=== PATIENT | male | born 1980 | race Caucasian/White ===

== ENCOUNTER 2019-01-13 23:10 | Emergency (ER) | payer BC ==
[2019-01-13] MEDS ORDERED: Sodium Chloride 0.9% 10 ML Syringe FLUSH PRN (23:25)
[2019-01-13] MEDS: Sodium Chloride 0.9% 1,000 ML IV ONE (23:33)
[2019-01-14 00:25] LABS: CHLORIDE,CL 99 mmol/L (98-107); SODIUM,NA 138 mmol/L (136-145)
[2019-01-14] MEDS: cloNIDine 0.1 MG Tab PO ONE (00:38)
--- NOTE | 2019-01-14 01:47 | EDM.PDOC ---
ED HPI GENERAL MEDICAL PROBLEM - General Chief Complaint: General Stated Complaint: HYPERTENSION Time Seen by Provider: 01/13/19 23:12 Source of Information: Reports: Patient History Limitations: Reports: No Limitations - History of Present Illness INITIAL COMMENTS - FREE TEXT/NARRATIVE: pt. presents to ER with complaints with lightheadedness and near syncope after exiting the shower. He states that he has hypertension that he has not been taking his clonidine for (it is ). He states that after he had this episode, he took a single dose of 0.1mg clonidine. Denies any chest pain. No shortness of breath. He does complain of some continued lightheadedness and fatigue. No nausea or vomiting. He states that he is an alcoholic. He went through treatment (60day [facility] through the [facility]) in 2017 and relapsed about 9 months ago. He drinks beer almost nightly. He denies having any symptoms of DTs when he doesn't drink. Denies any black or tarry stools. Onset: Today Location: Reports: Generalized Associated Symptoms: Reports: Weakness Back Pain Score (Numeric/FACES): 7 - Related Data Allergies Allergy/AdvReac Type Severity Reaction Status Date / Time No Known Allergies Allergy Verified 01/13/19 23:12 Home Meds: Home Meds cloNIDine [cloNIDine HCl] 0.1 mg PO BID 01/13/19 [History] Past Medical History Cardiovascular History: Reports: Hypertension - Past Surgical History HEENT Surgical History: Reports: Oral Surgery Musculoskeletal Surgical History: Reports: Other (See Below) Other Musculoskeletal Surgeries/Procedures:: back surgery Social & Family History - Tobacco Use Smoking Status *Q: Current Every Day Smoker Years of Tobacco use: 20 Packs/Tins Daily: 1 - Alcohol Use Days Per Week of Alcohol Use: 7 Number of Drinks Per Day: 6 Total Drinks Per Week: 42 - Recreational Drug Use Recreational Drug Use: Yes Recreational Drug Type: Reports: Marijuana/Hashish ED ROS GENERAL - Review of Systems Review Of Systems: See Below Constitutional: Reports: Weakness, Fatigue HEENT: Reports: No Symptoms Respiratory: Reports: No Symptoms Cardiovascular: Reports: Lightheadedness, Palpitations Endocrine: Reports: No Symptoms GI/Abdominal: Reports: No Symptoms : Reports: No Symptoms Musculoskeletal: Reports: No Symptoms Skin: Reports: No Symptoms Neurological: Reports: No Symptoms Psychiatric: Reports: No Symptoms Hematologic/Lymphatic: Reports: No Symptoms Immunologic: Reports: No Symptoms ED EXAM, GENERAL - Physical Exam Exam: See Below Exam Limited By: No Limitations General Appearance: Alert, WD/WN, No Apparent Distress Eye Exam: Bilateral Eye: EOMI, Normal Fundi, Normal Inspection, PERRL Nose: Normal Inspection, Normal Mucosa, No Blood Throat/Mouth: Normal Inspection, Normal Lips, Normal Teeth, Normal Gums, Normal Oropharynx, Normal Voice, No Airway Compromise Head: Atraumatic, Normocephalic Neck: Normal Inspection, Supple, Non-Tender, Full Range of Motion Respiratory/Chest: No Respiratory Distress, Lungs Clear, Normal Breath Sounds, No Accessory Muscle Use, Chest Non-Tender Cardiovascular: Normal Peripheral Pulses, Regular Rate, Rhythm, No Edema, No Gallop, No JVD, No Murmur, No Rub Peripheral Pulses: 4+: Radial (R) GI/Abdominal: Normal Bowel Sounds, Soft, Non-Tender, No Organomegaly, No Distention, No Abnormal Bruit, No Mass (Male) Exam: Deferred Rectal (Males) Exam: Deferred Back Exam: Normal Inspection, Full Range of Motion, NT Extremities: Normal Inspection, Normal Range of Motion, Non-Tender, Normal Capillary Refill, No Pedal Edema Neurological: Alert, Oriented, CN II-XII Intact, Normal Cognition, Normal Gait, Normal Reflexes, No Motor/Sensory Deficits Psychiatric: Normal Affect, Normal Mood Skin Exam: Warm, Dry, Intact, Normal Color, No Rash Lymphatic: No Adenopathy EKG INTERPRETATION Rhythm: NSR [place]: Normal P-Wave: Present QRS: Normal ST-T: Normal QT: Normal Course - Vital Signs Last Recorded V/S: Last Vital Signs Temp 36.8 C 01/13/19 23:12 Pulse 80 01/14/19 01:08 Resp 14 01/14/19 01:08 BP 158/96 H 01/14/19 01:08 Pulse Ox 98 01/14/19 00:32 - Orders/Labs/Meds Orders: Active Orders 24 hr Category Date Time Status EKG Documentation Completion [RC] STAT Care 01/13/19 23:24 Active Chest 1V Frontal [CR] Stat Exams 01/13/19 23:24 Taken Peripheral IV Insertion Adult [OM.PC] Routine Oth 01/13/19 23:25 Ordered Labs: Laboratory Tests 01/13/19 01/13/19 01/13/19 Range/Units 23:55 23:55 23:55 WBC 8.5 (4.0-10.0) x10^3/uL RBC 5.26 (4.5-6.0) x10^6/uL Hgb 16.8 (14.0-18.0) g/dL Hct 48.3 (40.0-52.0) % MCV 91.8 (78.0-93.0) fL MCH 31.9 (26.0-32.0) pg MCHC 34.8 (32.0-36.0) g/dL RDW Coeff of Olimpia 12.0 (10.0-15.0) % Plt Count 218 (130-400) x10^3/uL Neut % (Auto) 71.5 (50.0-80.0) % Lymph % (Auto) 20.9 L (25.0-50.0) % [place] % (Auto) 7.0 (2.0-11.0) % Eos % (Auto) 0.0 (0.0-4.0) % Baso % (Auto) 0.6 (0.2-1.2) % PT 10.4 (9.6-11.4) SEC INR 1.0 L (2.0-3.5) Sodium 138 (136-145) mmol/L Potassium 4.0 (3.5-5.1) mmol/L Chloride 99 (98-107) mmol/L Carbon Dioxide 25 (21-32) mmol/L Anion Gap 18.0 (10-20) mmol/L BUN 11 (7-18) mg/dL Creatinine 0.9 (0.70-1.30) mg/dL Est Cr Clr Drug Dosing TNP Estimated GFR (MDRD) > 60 Glucose 101 (74-106) mg/dL Calcium 9.6 (8.5-10.1) mg/dL Corrected Calcium 9.20 (8.5-10.1) mg/dL Phosphorus 4.0 (2.6-4.7) mg/dL Magnesium 2.1 (1.8-2.4) mg/dL Total Bilirubin 0.9 (0.2-1.0) mg/dL AST 21 (15-37) U/L ALT 18 (16-63) U/L Alkaline Phosphatase 79 (46-116) U/L Troponin I < 0.017 (<=0.056) ng/mL Total Protein 8.3 H (6.4-8.2) g/dL Albumin 4.5 (3.4-5.0) g/dL Globulin 3.8 Albumin/Globulin Ratio 1.18 Urine Color (YELLOW) Urine Appearance (CLEAR) Urine pH (5.0-8.0) Ur Specific [place] Urine Protein (NEGATIVE) mg/dL Urine Glucose (UA) (NEGATIVE) mg/dL Urine Ketones (NEGATIVE) mg/dL Urine Occult Blood (NEGATIVE) Urine Nitrite (NEGATIVE) Urine Bilirubin (NEGATIVE) Urine Urobilinogen (0.2) EU/dL Ur Leukocyte Esterase (NEGATIVE) Urine RBC (NOT SEEN) /HPF Urine WBC (NOT SEEN) /HPF Ur Squamous Epith Cells (NEGATIVE) /HPF Urine Bacteria (NEGATIVE) /HPF Urine Mucus (NEGATIVE) /LPF 01/14/19 Range/Units 00:31 WBC (4.0-10.0) x10^3/uL RBC (4.5-6.0) x10^6/uL Hgb (14.0-18.0) g/dL Hct (40.0-52.0) % MCV (78.0-93.0) fL MCH (26.0-32.0) pg MCHC (32.0-36.0) g/dL RDW Coeff of Olimpia (10.0-15.0) % Plt Count (130-400) x10^3/uL Neut % (Auto) (50.0-80.0) % Lymph % (Auto) (25.0-50.0) % [place] % (Auto) (2.0-11.0) % Eos % (Auto) (0.0-4.0) % Baso % (Auto) (0.2-1.2) % PT (9.6-11.4) SEC INR (2.0-3.5) Sodium (136-145) mmol/L Potassium (3.5-5.1) mmol/L Chloride (98-107) mmol/L Carbon Dioxide (21-32) mmol/L Anion Gap (10-20) mmol/L BUN (7-18) mg/dL Creatinine (0.70-1.30) mg/dL Est Cr Clr Drug Dosing Estimated GFR (MDRD) Glucose (74-106) mg/dL Calcium (8.5-10.1) mg/dL Corrected Calcium (8.5-10.1) mg/dL Phosphorus (2.6-4.7) mg/dL Magnesium (1.8-2.4) mg/dL Total Bilirubin (0.2-1.0) mg/dL AST (15-37) U/L ALT (16-63) U/L Alkaline Phosphatase (46-116) U/L Troponin I (<=0.056) ng/mL Total Protein (6.4-8.2) g/dL Albumin (3.4-5.0) g/dL Globulin Albumin/Globulin Ratio Urine Color Dark yellow H (YELLOW) Urine Appearance Slightly cloudy H (CLEAR) Urine pH 7.0 (5.0-8.0) Ur Specific [place] 1.020 Urine Protein Negative (NEGATIVE) mg/dL Urine Glucose (UA) Negative (NEGATIVE) mg/dL Urine Ketones 40 H (NEGATIVE) mg/dL Urine Occult Blood Negative (NEGATIVE) Urine Nitrite Negative (NEGATIVE) Urine Bilirubin Small H (NEGATIVE) Urine Urobilinogen 0.2 (0.2) EU/dL Ur Leukocyte Esterase Negative (NEGATIVE) Urine RBC Not seen (NOT SEEN) /HPF Urine WBC 0-5 (NOT SEEN) /HPF Ur Squamous Epith Cells Not seen (NEGATIVE) /HPF Urine Bacteria Few H (NEGATIVE) /HPF Urine Mucus Few H (NEGATIVE) /LPF Meds: Medications Discontinued Medications Generic Name Dose Route Start Last Admin Trade Name Freq PRN Reason Stop Dose Admin Clonidine HCl 0.1 mg 01/14/19 00:35 01/14/19 00:38 Catapres PO 01/14/19 00:36 0.1 mg ONETIME ONE Administration Sodium Chloride 1,000 mls @ 1,000 mls/hr 01/13/19 23:25 01/13/19 23:33 Normal Saline IV 01/14/19 00:24 1,000 mls/hr .BOLUS ONE Administration Sodium Chloride 10 ml 01/13/19 23:25 Saline Flush FLUSH ASDIRECTED PRN Keep Vein Open - Radiology Interpretation Free Text/Narrative:: negative Departure - Departure Time of Disposition: 01:14 Disposition: Home, Self-Care 01 Clinical Impression: Near syncope, Dehydration, Hypertension - Discharge Information Instructions: Hypertension, [id number], Syncope, Dehydration, Adult Referrals: PCP,Unobtain [Primary Care Provider] - Forms: ED Department Discharge Additional Instructions: Home to rest. Start clonidine 0.1mg once daily Follow-up in clinic for recheck of BP in 5-10 days Return to ER if you have any chest pain, shortness of breath, or lightheadedness. - My Orders Last 24 Hours: My Active Orders 01/13/19 23:24 EKG Documentation Completion [RC] STAT Chest 1V Frontal [CR] Stat 01/13/19 23:25 Peripheral IV Insertion Adult [OM.PC] Routine - Assessment/Plan Last 24 Hours: My Active Orders 01/13/19 23:24 EKG Documentation Completion [RC] STAT Chest 1V Frontal [CR] Stat 01/13/19 23:25 Peripheral IV Insertion Adult [OM.PC] Routine Plan: Home to rest. Start clonidine 0.1mg once daily Follow-up in clinic for recheck of BP in 5-10 days Return to ER if you have any chest pain, shortness of breath, or lightheadedness.
--- NOTE | 2019-01-14 08:10 | CR ---
[id number] RAD/RAD Chest PA or AP 1V EXAM: FRONTAL CHEST INDICATION: Syncope. COMPARISON: June 06, 2015. DISCUSSION: The heart and lungs are normal in appearance. Posterior fusion hardware mid to lower thoracic spine. IMPRESSION: 1. Negative exam. Meet Ortiz MD 01/14/19 0809 Thank you for allowing us to participate in the care of your patient.
== END 2019-01-14 01:14 | disposition home or self-care (01) ==
LOC: VM.ED 23:10
DX: E86.0 Dehydration (principal); R55 Syncope and collapse; I10 Essential (primary) hypertension; F17.210 Nicotine dependence, cigarettes, uncomplicated
CPT/HCPCS: 36415; 71045; 80053; 81001; 83735; 84100; 84484; 85025; 85610; 93005; 96360; 96361; 99284-25; A9270-GY; J7030

== ENCOUNTER 2020-09-26 20:50 | Emergency (ER) | payer OTHER, BC ==
--- NOTE | 2020-09-26 21:22 | EDM.PDOC ---
ED HPI GENERAL MEDICAL PROBLEM - General Chief Complaint: Upper Extremity Injury/Pain Stated Complaint: POSSIBLE BROKEN L ELBOW Time Seen by Provider: 09/26/20 21:13 Source of Information: Reports: Patient - History of Present Illness INITIAL COMMENTS - FREE TEXT/NARRATIVE: Zaid is a 40 y/o0 male who comes to the ER with complaints of left elbow pain and swelling. His hand is also tingling and feels "funny". He was drinking last night at a friend's house in [place] and about 2330 he tripped a fell backwards on a porch and caught his left elbow on a brick flower pot. The arm did hurt, but he went to sleep later and slept all night, but the arm continued to hurt today. He has used marijuana last 2 hours ago for pain control, although he is a daily user. Denies any other injuries. He had apparently checked into one of the [place] ERs, but got frustrated waiting and then left for home which is in [place]. On the drive here, his left arm was painful with movement and his left hand was numb and tingly again so he figured he better stop at the ER here for evaluation. Left Elbow Pain Score (Numeric/FACES): 5 - Related Data Allergies Allergy/AdvReac Type Severity Reaction Status Date / Time No Known Allergies Allergy Verified 09/26/20 20:57 Home Meds: Home Meds . [No Known Home Meds] 09/26/20 [History] Past Medical History Cardiovascular History: Reports: Hypertension - Past Surgical History HEENT Surgical History: Reports: Oral Surgery Musculoskeletal Surgical History: Reports: Other (See Below) Other Musculoskeletal Surgeries/Procedures:: back surgery Social & Family History - Tobacco Use Tobacco Use Status *Q: Current Every Day Tobacco User Years of Tobacco use: 23 Packs/Tins Daily: 1.5 - Alcohol Use Days Per Week of Alcohol Use: 7 Number of Drinks Per Day: 12 Total Drinks Per Week: 84 Date of Last Drink: 09/26/20 Time of Last Drink: 19:00 - Recreational Drug Use Recreational Drug Use: Yes Recreational Drug Type: Reports: Marijuana/Hashish Recreational Drug Use Frequency: Daily Review of Systems - Review of Systems Review Of Systems: See Below Constitutional: Reports: No Symptoms Eyes: Reports: No Symptoms Ears: Reports: No Symptoms Nose: Reports: No Symptoms Mouth/Throat: Reports: No Symptoms Respiratory: Reports: No Symptoms Cardiovascular: Reports: No Symptoms GI/Abdominal: Reports: No Symptoms Genitourinary: Reports: No Symptoms Musculoskeletal: Reports: Joint Pain (Left elbow) Skin: Reports: No Symptoms Neurological: Reports: Paresthesia (left hand/arm), Tingling (left hand/arm) Psychiatric: Reports: No Symptoms ED EXAM, GENERAL - Physical Exam Exam: See Below General Appearance: Alert, WD/WN, No Apparent Distress (Adult male) Throat/Mouth: Normal Voice Head: Atraumatic, Normocephalic, Other (Grossly intant) Neck: Normal Inspection Respiratory/Chest: No Respiratory Distress Cardiovascular: Regular Rate, Rhythm Peripheral Pulses: 3+: Radial (L) GI/Abdominal: Soft (Male) Exam: Deferred Rectal (Males) Exam: Deferred Back Exam: Other (not examined) Extremities: Joint Swelling (left elbow swelling on posterior aspect) Neurological: Alert, Oriented, CN II-XII Intact, No Motor/Sensory Deficits Psychiatric: Normal Affect, Normal Mood Skin Exam: Warm, Dry, Intact, Normal Color Course - Vital Signs Text/Narrative:: 2112 The patient was seen by the [facility]. Xray was ordered. He denied need for pain meds at this time. 0 Xray reviewed, no fx noted. Discussed findings with pt. IZABELA wrap applied to his left elbow. He was given discharge instructions and left the ER in stable condition. Last Recorded V/S: Last Vital Signs Temp 36.3 C 09/26/20 20:58 Pulse 100 09/26/20 20:58 Resp 16 09/26/20 20:58 BP 170/112 H 09/26/20 21:06 Pulse Ox 96 09/26/20 20:58 - Orders/Labs/Meds Orders: Active Orders 24 hr Category Date Time Status Elbow Min 3V Lt [CR] Stat Exams 09/26/20 21:18 Taken - Radiology Interpretation Free Text/Narrative:: XR Left Elbow=no acute fx noted (See final report) Departure - Departure Time of Disposition: 22:41 Disposition: Home, Self-Care 01 Condition: Good Clinical Impression: Left elbow pain Elbow contusion Qualifiers: Encounter type: initial encounter Laterality: left Qualified Code(s): S50.02XA - Contusion of left elbow, initial encounter - Discharge Information Instructions: How to Use Cold Therapy, [id number], Elbow Contusion Referrals: Alverto Pagan MD [Primary Care Provider] - Forms: ED Department Discharge Additional Instructions: -Wear the IZABELA as needed to help with swelling and reduce pain -You may use acetaminophen or ibuprofen as needed for pain. -Ice as needed -If the pain persists in the next 2-3 weeks, you may need to follow up with your PCP to have further diagnostic imaging. Sometimes fractures do not immediately show up on an xray. -Return to the ER as needed Sepsis Event Note (ED) - Evaluation Sepsis Screening Result: No Definite Risk - Focused Exam Vital Signs: Vital Signs Temp Pulse Resp BP Pulse Ox 09/26/20 21:06 170/112 H 09/26/20 20:58 36.3 C 100 16 221/128 H 96 - My Orders Last 24 Hours: My Active Orders 09/26/20 21:18 Elbow Min 3V Lt [CR] Stat - Assessment/Plan Last 24 Hours: My Active Orders 09/26/20 21:18 Elbow Min 3V Lt [CR] Stat Assessment:: 1)Left Elbow Pain 2)Left Elbow Contusion Plan: -Wear the IZABELA as needed to help with swelling and reduce pain -You may use acetaminophen or ibuprofen as needed for pain. -Ice as needed -If the pain persists in the next 2-3 weeks, you may need to follow up with your PCP to have further diagnostic imaging. Sometimes fractures do not immediately show up on an xray. -Return to the ER as needed
--- NOTE | 2020-09-27 07:05 | CR ---
[id number] RAD/RAD Elbow Left 3V Min EXAM: RAD Elbow Left 3V Min CLINICAL DATA: TRAUMA COMPARISON: NO PREVIOUS SIMILAR EXAM IS AVAILABLE. FINDINGS: No fracture or dislocation is seen. There is no radiopaque foreign body in the soft tissues. There is no air in the soft tissues. There is no cortical thickening or periosteal reaction either. IMPRESSION: NEGATIVE PLAIN FILM EXAM. Prakash Vergara MD 09/27/20 0704 Thank you for allowing us to participate in the care of your patient.
== END 2020-09-26 22:45 | disposition home or self-care (01) ==
LOC: VM.ED 20:50
DX: S50.02XA Contusion of left elbow, initial encounter (principal); I10 Essential (primary) hypertension; F17.210 Nicotine dependence, cigarettes, uncomplicated; W01.198A Fall on same level from slipping, tripping and stumbling with subsequent striking against other object, initial encounter; Y92.009 Unspecified place in unspecified non-institutional (private) residence as the place of occurrence of the external cause
CPT/HCPCS: 73080-LT; 99283; 99284